=== PATIENT | male | born 1965 | race American Indian/Alaskan Native ===

== ENCOUNTER 2018-04-21 12:25 | Emergency (ER) | payer BC ==
[2018-04-21] MEDS ORDERED: Labetalol 5 mg/ml Inj 20ML IV STA (12:45)
--- NOTE | 2018-04-21 12:48 | ED PDOC ---
Arrival/HPI - General Chief Complaint: High Blood Pressure Time Seen by Provider: 04/21/18 12:26 Historian: Patient - History of Present Illness Narrative History of Present Illness (Text): 04/21/18 12:45 52 year old male, with past medical history of hypertension and diabetes, presents to the ED for evaluation of elevated blood pressure since prior to arrival. Patient informs he was made aware of high blood pressure during a fitness test at work and was subsequently referred to the ED for medical evaluation. Patient reports non-compliance with his blood pressure medications. Patient denies any other associated somatic complaints. Patient denies any fevers, chills, headache, dizziness, chest pain, shortness of breath, dyspnea on exertion, cough, abdominal pain, nausea, vomiting, diarrhea, back pain, neck pain, or any other complaints. Time/Duration: Prior to Arrival Symptom Onset: Gradual Symptom Course: Unchanged Activities at Onset: Light Context: Work Past Medical History - Provider Review Nursing Documentation Reviewed: Yes - Cardiac Hx Hypertension: Yes - Endocrine/Metabolic Hx Diabetes Mellitus Type 2: Yes - Psychiatric Hx Substance Use: No Family/Social History - Physician Review Nursing Documentation Reviewed: Yes Family/Social History: Unknown Family HX Smoking Status: Heavy Smoker > 10 Cigarettes Daily Hx Alcohol Use: Yes Frequency of alcohol use: Daily Hx Substance Use: No Allergies/Home Meds Allergies/Adverse Reactions: Allergies No Known Allergies Allergy (Unverified 04/21/18 12:44) Review of Systems - Physician Review All systems were reviewed & negative as marked: Yes - Review of Systems Constitutional: absent: Fevers Respiratory: absent: SOB, Cough Cardiovascular: Other (Elevated blood pressure). absent: Chest Pain Gastrointestinal: absent: Abdominal Pain, Diarrhea, Nausea, Vomiting Genitourinary Male: absent: Dysuria, Urinary Output Changes Musculoskeletal: absent: Back Pain, Neck Pain Skin: absent: Rash Neurological: absent: Headache, Dizziness Physical Exam Vital Signs Reviewed: Yes Vital Signs Temp Pulse Resp BP Pulse Ox 04/21/18 12:32 98.8 F 114 H 18 205/105 H 99 Temperature: Afebrile Blood Pressure: Hypertensive Pulse: Tachycardic Respiratory Rate: Normal Appearance: Positive for: Non-Toxic, Comfortable, Other (Anxious appearing) Pain Distress: None Mental Status: Positive for: Alert and Oriented X 3 - Systems Exam Head: Present: Atraumatic, Normocephalic Pupils: Present: PERRL Extroacular Muscles: Present: EOMI Conjunctiva: Present: Normal Respiratory/Chest: Present: Clear to Auscultation, Good Air Exchange. No: Respiratory Distress, Accessory Muscle Use Cardiovascular: Present: Regular Rate and Rhythm, Normal S1, S2. No: Murmurs Abdomen: No: Tenderness, Distention, Peritoneal Signs Upper Extremity: Present: Normal Inspection. No: Cyanosis, Edema Lower Extremity: Present: Normal Inspection. No: Edema Neurological: Present: GCS=15, CN II-XII Intact, Speech Normal Skin: Present: Warm, Dry, Normal Color. No: Rashes Psychiatric: Present: Alert, Oriented x 3, Anxious Medical Decision Making ED Course and Treatment: 04/21/18 12:44 Impression: 52 year old male presents to the ED for evaluation of elevated blood pressure. essential htn vs hypertensive urgency vs emergency - Plan: -- EKG -- Labs -- Labetalol -- Urinalysis -- Reassess and disposition Prior Visits: Notes and results from previous visits were reviewed. Progress Notes: 04/21/18 12:58 EKG: Ordered, reviewed, and independently interpreted the EKG. Rate : 105 BPM Rhythm : Sinus Tachycardia Interpretation : LVH 04/21/18 14:20 labs neg. b/p improved. no cardiopulm complaints. lungs cta. noted lvh, suspect 2/2 essential htn non complaince. lungs cta. speaking full sentences in nad. adviesd at lenght about medication complaince and need to b/p mangment. advise otupt fu. pt verbailzies understanding .strict return precautions adviesd. - EKG Interpretation Interpreted by ED Physician: Yes Type: 12 lead EKG - Scribe Statement The provider has reviewed the documentation as recorded by the Scribe Tess Garcia. All medical record entries made by the Scribe were at my direction and personally dictated by me. I have reviewed the chart and agree that the record accurately reflects my personal performance of the history, physical exam, medical decision making, and the department course for this patient. I have also personally directed, reviewed, and agree with the discharge instructions and disposition. Disposition/Present on Arrival - Present on Arrival Any Indicators Present on Arrival: No History of DVT/PE: No History of Uncontrolled Diabetes: No Urinary Catheter: No History of Decub. Ulcer: No History Surgical Site Infection Following: None - Disposition Have Diagnosis and Disposition been Completed?: Yes Diagnosis: High blood pressure Disposition: HOME/ ROUTINE Disposition Time: 13:40 Patient Problems: Current Active Problems Problem Status Onset High blood pressure Acute Condition: STABLE Discharge Instructions (ExitCare): High Blood Pressure in Adults, High Blood Pressure (DC), Medicines for High Blood Pressure Additional Instructions: please follow up with your doctor/clinic. you will need further testing as an outpatient. please take your prescribed medications. return ot any er with worsening symptoms or concerns. you will need further workup as an outpatient. Prescriptions: RX: hydroCHLOROthiazide [Hydrodiuril] 25 mg PO DAILY #10 tab Referrals: Shayan Astorga MD [Staff Provider] - Follow up with primary Forms: [employer] ([place])
[2018-04-21] MEDS ORDERED: Labetalol 5mg/ml (4ml) IV ONE ×2 (13:00→13:15)
[2018-04-21 13:04] LABS: BASO # 0.01 K/mm3 (0.0-2.0); BASO % 0.1 % (0.0-3.0); GRAN # 5.06 (1.4-6.5); GRAN % 66.2 % (50.0-68.0); HEMOGLOBIN 13.6 g/dL (14.0-18.0); LYMPH # 2.1 (1.2-3.4); LYMPH % 27.8 % (22.0-35.0); MEAN CELL VOLUME 74.3 fl (80.0-105.0); MEAN CORPUSCULAR HEMOGLOBIN 24.2 pg (25.0-35.0); MEAN CORPUSCULAR HGB CONC 32.6 g/dl (31.0-37.0); MEAN PLATELET VOLUME 9.8 fl (7.0-11.0); MONO # 0.5 (0.1-0.6); MONO % 5.9 % (1.0-6.0); RBC 5.61 10^6/uL (3.5-6.1); RED CELL DISTRIBUTION WIDTH 14.3 % (11.5-14.5); WHITE BLOOD COUNT 7.7 10^3/uL (4.5-11.0)
[2018-04-21 13:07] LABS: INR 0.98; PARTIAL THROMBOPLASTIN TIME 28.6 Seconds (25.1-36.5); PROTHROMBIN TIME 11.3 SECONDS (9.4-12.5)
[2018-04-21 13:10] LABS: BLOOD UREA NITROGEN 14 mg/dL (7-21); GFR NON-AFRICAN AMERICAN > 60
[2018-04-21 13:11] LABS: ALB/GLOB RATIO 1.5 (1.1-1.8); ALBUMIN 4.9 g/dL (3.0-4.8); ALT/SGPT 29 U/L (7-56); AST/SGOT 26 U/L (17-59)
[2018-04-21 13:20] LABS: TROPONIN I < 0.01 ng/mL
[2018-04-21 13:26] LABS: CK-MB 2.3 ng/mL (0.0-3.6)
[2018-04-21 13:48] VITALS: BP 172/94; PULSE 88; RESP 16; O2SAT 99
[2018-04-21 15:10] VITALS: TEMP 98
--- NOTE | 2018-04-22 09:02 | CARD ---
APPROVED REPORT Date of service: 04/21/2018 EKG Measurement Heart [id number] <Conclusion> Sinus tachycardia Possible Left atrial enlargement NSSTW changes
== END 2018-04-21 13:55 | disposition home or self-care (01) ==
LOC: ED 12:25
DX: I10 Essential (primary) hypertension (principal); E11.9 Type 2 diabetes mellitus without complications; F17.210 Nicotine dependence, cigarettes, uncomplicated